=== PATIENT | male | born 1950 | race Caucasian/White ===

== ENCOUNTER 2018-12-29 10:59 | Emergency (ER) | payer OTHER ==
--- NOTE | 2018-12-29 11:07 | EDPHY ---
H & P Time Seen by Provider: 12/29/18 11:07 HPI/ROS: CHIEF COMPLAINT: Back pain HISTORY OF PRESENT ILLNESS: This is a 68-year-old male, in general good health , who presents with low back pain, in the midline. He has a decades long history of intermittent low back pain that resolves with conservative measures. He thinks this pain may have started in October when he was golfing and torqued his back with a vigorous golf swing. However, about 2 weeks ago the pain began increasing. At that time he had an upper respiratory infection with a hacking cough and he notes that coughing worsened his low back pain. The upper respiratory infection is entirely resolved. His back pain is now a dull constant sensation and for the past 2 nights has interfered with his sleep. The pain is worse when sitting. A week ago he tried ibuprofen 400 mg twice daily but discontinued this medication because did not seem to be helping. He tried a lidocaine 5% patch which also did not help. He has not taken any medications during the past week. He had a massage with no improvement. The pain does not radiate. He has no pain in his buttocks or legs. He denies numbness. He has not had weakness. No bowel or bladder problems. He has had no recent trauma. He has not had fever and aside from an upper respiratory infection a few weeks ago he has not been ill. He has no history of cancer and had a normal PSA in October of this year. He is not immunosuppressed. He has no history of IV drug use. REVIEW OF SYSTEMS: A ten system review of systems was performed and is negative with the exception of the items mentioned in the HPI. Past medical history: Exercise-induced asthma for which he uses an albuterol MDI p.r.n. Past surgical history: Bilateral knee arthroscopy. Social history: He is a retired infection control specialist. He is here with his . He does not use tobacco products. He drinks 5-6 alcoholic beverages daily. General Appearance: Alert. Vital signs reviewed. Blood pressure 175/90. Afebrile. Eyes: Pupils equal and round, no conjunctival injection, no discharge. Anicteric. Neck: Nontender to palpation of the cervical spine in the midline. No pain with active range of motion of his neck. Respiratory: Lungs are clear to auscultation; no wheezes, rales, or rhonchi. Cardiovascular: Regular rate and rhythm; no murmur, rub, or gallop. Gastrointestinal: Abdomen is soft and nontender, no masses or organomegaly, bowel sounds normal. Skin: Warm and dry, no rashes on exposed skin, normal color. Back: Nontender to palpation over the thoracolumbar spine. No CVAT. Extremities: No lower extremity edema, no calf tenderness or swelling. Neurological: Alert and oriented. Moving all four extremities easily and equally. Strength is 5 over 5 bilaterally with testing of all major motor groups in both lower extremities--hip flexion, hip extension, knee flexion, knee extension , plantar flexion, dorsiflexion, and EHL. Sensation is intact to light touch over all 4 extremities. Deep tendon reflexes are 2+ in the knees and ankles bilaterally. Gait is normal. He is able to heel walk and toe walk without difficulty. Normal range of flexion extension at the waist and also of lateral bending. He has some pain with extension. Psychiatric: Normal affect. Constitutional: Initial Vital Signs Temperature (C) 36.6 C 12/29/18 11:16 Heart Rate 78 12/29/18 11:16 Respiratory Rate 16 12/29/18 11:16 Blood Pressure 175/90 H 12/29/18 11:16 O2 Sat (%) 96 12/29/18 11:16 O2 Delivery Mode Room Air Allergies/Adverse Reactions: No Known Allergies Allergy (Unverified 12/29/18 11:16) Home Medications: Medication Instructions Recorded Hydrocodone/APAP 5/325 [[place] 1 - 2 tab PO Q4 PRN #10 tab 12/29/18 5/325 (RX)] Medical Decision Making ED Course/Re-evaluation: 68-year-old male with midline lumbar back pain. No red flags in his history or physical. There is nothing that suggests infection such as diskitis or vertebral osteomyelitis--he has not had fever. He has no cauda equina symptoms. No history of cancer and I think metastases are unlikely. He has not had trauma and has no vertebral tenderness, making fracture unlikely. No radicular symptoms. No skin changes that would suggest shingles. At this point in time back imaging is not warranted. This is likely musculoskeletal back pain. I am recommending conservative treatments--lidocaine patch, ibuprofen and Tylenol, Vicodin if needed for more severe pain. He was given narcotic warnings. We reviewed the danger signs that should prompt him to seek immediate medical attention. Differential Diagnosis: Back pain including but not limited to muscular pain, herniated disc, spine fracture, infection such as diskitis or vertebral osteomyelitis, intra- abdominal causes and urinary tract infection. Departure - Departure Disposition: Home, Routine, Self-Care Clinical Impression: Low back pain Qualifiers: Chronicity: acute Back pain laterality: midline Sciatica presence: without sciatica Qualified Code(s): M54.5 - Low back pain Condition: Good Instructions: Back Pain (ED), Lower Back Exercises (ED) Additional Instructions: Adult Pain & Fever Control: We recommend Acetaminophen (Tylenol) and Ibuprofen (Motrin,Advil) for pain and fever control. When fever is high or pain severe, both drugs can be used at the same time, but at different intervals. Please note the time differences. Your dose is: Acetaminophen [650]mg every 4 to 6 hours Ibuprofen [400]mg every [6-8] hours with food Note: do not take Acetaminophen with Hydrocodone (Vicodin, Lortab, [place]) or Oycodone (Percocet). These medications also contain Acetaminophen. No more than 3000mg of Acetaminophen should be taken in 24 hours (for an adult). If you take the [place] along with additional acetaminophen, be sure that you keep track of the overall dose of acetaminophen you are taking. I recommend writing it down. Use the [place] on an as needed basis for severe pain. If you're taking this medication you should use the MiraLax that we discussed. Try the lidocaine patches again. You can buy these [id number], 4%. Ibuprofen is the medication that is most likely to help you. I recommend taking it on a regular scheduled basis for the next 2-3 days. Do not take this medication daily for weeks at a time. If you develop fever, severely worsening pain, new numbness, new weakness, trouble controlling your bowels or your bladder--you should be re-evaluated immediately. Referrals: Ha Banks DO [Primary Care Provider] - As per Instructions Magdiel Luong MD [Medical Doctor] - As per Instructions [facility] [Outside] - As per Instructions Stand Alone Forms: Narcotic Guidelines Prescriptions: Hydrocodone/APAP 5/325 [[place] 5/325 (RX)] 1 - 2 tab PO Q4 PRN #10 tab PRN Reason: pain
[2018-12-29 12:15] VITALS: BP 174/91
== END 2018-12-29 12:14 | disposition home or self-care (01) ==
LOC: CED 10:59
DX: M54.5 Low back pain (principal); R05 Cough
CPT/HCPCS: 99283-ER